=== PATIENT | female | born 1995 | race Caucasian/White ===

== ENCOUNTER 2019-03-25 19:17 | Emergency (ER) | payer OTHER ==
[~2019-03-25] VITALS: Ht 170.2 cm; Wt 52.2 kg
[2019-03-25 19:19] VITALS: BP 114/78
--- NOTE | 2019-03-25 19:25 | NUR ---
ED Nurse Note: Walk-in patient presents with complaints of abdominal cramping of unknown origin. Urine specimen collected, will contiunue to monitor.
[2019-03-25 19:55] LABS: APPEARANCE,URINE CLEAR; BILIRUBIN, URINE NEGATIVE (NEGATIVE); COLOR,URINE PALE YELLOW; GLUCOSE, URINE (UA) NEGATIVE (NEGATIVE); KETONES,URINE NEGATIVE (NEGATIVE); LEUKOCYTE ESTERASE ,URINE NEGATIVE (NEGATIVE); NITRITE,URINE NEGATIVE (NEGATIVE); PH,URINE 7 (4.5-8.0); PROTEIN,URINE NEGATIVE (NEGATIVE); UROBILINOGEN,URINE NORMAL MG/DL (0.0-1.0)
[2019-03-25] MEDS ORDERED: CEPHALEXIN500 MG ORAL (20:00)
--- NOTE | 2019-03-25 20:00 | Emergency Room Report ---
History of Present Illness General Chief Complaint: Abdominal Pain Source: Patient Present Illness HPI 23-year-old female with no significant past medical history here complaining of 4 days of urinary frequency and urgency. Denies dysuria, hematuria, pelvic pain , flank pain, fever and chills nausea vomiting. Denies vaginal discharge and recent sexual encounter. Complains of minimal discomfort and pressure in suprapubic area upon urination. Has not taken medication for symptom relief. Last menstrual period was 3 weeks ago and regular. Allergies: Coded Allergies: No Known Allergies (Unverified , 03/25/19) Patient History Past Medical History: see triage record Past Surgical History: unable to obtain Pertinent Family History: none Last Menstrual Period: 03/13/19 Now: No : 0 Para: 0 Immunizations: UTD Reviewed Nursing Documentation: PMH: Agreed; PSxH: Agreed Nursing Documentation-PMH Past Medical History: No Stated History Review of Systems All Other Systems: negative except mentioned in HPI Physical Exam Vital Signs Date Time Temp Pulse Resp B/P (MAP) Pulse Ox O2 Delivery O2 Flow Rate FiO2 03/25/19 19:19 98.4 75 16 114/78 100 Room Air Sp02 EP Interpretation: reviewed, normal General Appearance: no apparent distress, alert, GCS 15, non-toxic Head: normocephalic, atraumatic Eyes: bilateral eye normal inspection, bilateral eye PERRL ENT: hearing grossly normal, normal pharynx, no angioedema, normal voice Neck: full range of motion, supple/symm/no masses Respiratory: chest non-tender, lungs clear, normal breath sounds, no rhonchi, no wheezing, speaking full sentences Cardiovascular #1: regular rate, rhythm, no edema, no murmur, normal capillary refill Gastrointestinal: normal bowel sounds, non tender, soft, non-distended, no guarding, no rebound Rectal: deferred Genitourinary: no CVA tenderness Musculoskeletal: back normal, normal range of motion, gait/station normal, non- tender Neurologic: alert, motor strength/tone normal, oriented x3, sensory intact, responsive, speech normal Psychiatric: judgement/insight normal, memory normal, mood/affect normal, no suicidal/homicidal ideation Skin: no rash Lymphatic: no adenopathy Medical Decision Making PA Attestation Diagnosis and treatment plans were reviewed and discussed with my supervising physician Dr. Gallego Diagnostic Impression: Primary Impression: Urinary frequency ER Course 23-year-old female with no significant past medical history here complaining of 4 days of urinary frequency and urgency. Denies dysuria, hematuria, pelvic pain , flank pain, fever and chills nausea vomiting. Denies vaginal discharge and recent sexual encounter. Complains of minimal discomfort and pressure in suprapubic area upon urination. Has not taken medication for symptom relief. Last menstrual period was 3 weeks ago and regular. Ddx considered but are not limited to: UTI, chlamydia, gonorrhea, vaginitis Vital signs: are WNL, pt. is afebrile H&PE are most consistent with: Urinary frequency most likely secondary to UTI ORDERS: UA, urine test, Keflex, patient to be empirically treated for possible sexually transmitted disease causing urinary tract infection as urine dip did not show any infection however I treated her based on her symptoms pending urine culture results ED INTERVENTIONS: None required at this time. DISCHARGE: At this time pt. is stable for d/c to home. Will provide printed patient care instructions, and any necessary prescriptions. Care plan and follow up instructions have been discussed with the patient prior to discharge. Last Vital Signs Date Time Temp Pulse Resp B/P (MAP) Pulse Ox O2 Delivery O2 Flow Rate FiO2 03/25/19 19:19 98.4 75 16 114/78 (90) 100 Room Air Disposition: HOME, SELF-CARE Condition: Stable Scripts Cephalexin* (KEFLEX*) 500 Mg Capsule 500 MG ORAL EVERY 6 HOURS for 7 Days, #28 CAP Prov: Laura Hernandez 03/25/19 Referrals: NON PHYSICIAN (PCP) Patient Instructions: Urinary Frequency Laura Hernandez Mar 25, 2019 20:00
[2019-03-25 20:09] VITALS: BP 114/78
--- NOTE | 2019-03-25 20:09 | NUR ---
ED Nurse Note: Patient cleared by ER emmanuel, is A&Ox4, ambulatory with steady gait and has no complaints at this time. Patient ID band removed, Patient verbalized understanding of discharge instructions and departed with all belongings accompanied by her friend.
== END 2019-03-25 20:09 | disposition home or self-care (01) ==
LOC: EMR 19:43
DX: R35.0 Frequency of micturition (principal)
CPT/HCPCS: 81003; 81025; Z7502; 99283